=== PATIENT | male | born 1945 | race Caucasian/White ===

== ENCOUNTER 2019-09-29 10:33 | Outpatient (CLI) | payer MEDICARE, BC, SELFPAY ==
[2019-09-29 11:05] VITALS: BP 184/95; PULSE 101; RESP 22; TEMP 36.4; O2SAT 95
[2019-09-29 12:15] VITALS: BP 172/90; PULSE 92; RESP 20; TEMP 36.6; O2SAT 98
--- NOTE | 2019-09-29 12:44 | PC.NURSE ---
1115 noted wheezing bilat. States did breathing treatment this am prior to arrival. States has albuterol in pocket if needed.
== END 2019-09-29 10:34 | disposition home or self-care (01) ==
LOC: RHEOACUTE 10:34
PROVIDERS: Family Provider Family Medicine; PCP Family Medicine; Visit Provider Internal Medicine Rheumatology
DX: M05.9 Rheumatoid arthritis with rheumatoid factor, unspecified (principal); Z79.899 Other long term (current) drug therapy
CPT/HCPCS: 36415; 82565; 84460; 85025; 85651; 86140; 96365; J1602

== ENCOUNTER → 2019-09-29 11:16 | Outpatient (BNVA) | payer MEDICARE, BC, SELFPAY | PROVIDERS: Family Provider Family Medicine; PCP Family Medicine; Visit Provider Internal Medicine Rheumatology | DX: M05.9 Rheumatoid arthritis with rheumatoid factor, unspecified (principal) | CPT/HCPCS: 85025 ==

== ENCOUNTER 2020-01-19 08:48 | Outpatient (CLI) | payer MEDICARE, BC, SELFPAY ==
[2020-01-19 09:00] VITALS: BP 112/77; PULSE 101; RESP 20; TEMP 36.4; O2SAT 90
--- NOTE | 2020-01-19 10:09 | PC.NURSE ---
wheezing throughout. loose cough noted. Home oxygen per [place] in place. 3L.
[2020-01-19 10:45] VITALS: BP 112/72; PULSE 98; RESP 20; TEMP 36.6; O2SAT 90
== END 2020-01-19 08:49 | disposition home or self-care (01) ==
LOC: RHEOACUTE 08:49
PROVIDERS: Family Provider Family Medicine; PCP Family Medicine; Visit Provider Internal Medicine Rheumatology
DX: M05.79 Rheumatoid arthritis with rheumatoid factor of multiple sites without organ or systems involvement (principal); Z79.899 Other long term (current) drug therapy
CPT/HCPCS: 36415; 85025; 85651; 96365; J1602

== ENCOUNTER → 2020-02-19 10:09 | Outpatient (BNVA) | payer MEDICARE, BC, SELFPAY | PROVIDERS: Family Provider Family Medicine; PCP Family Medicine; Visit Provider Internal Medicine Rheumatology | DX: Z79.899 Other long term (current) drug therapy (principal) | CPT/HCPCS: 36415; 80076; 82565; 85025; 85651; 86140 ==

== ENCOUNTER 2020-03-15 10:20 | Outpatient (CLI) | payer MEDICARE, BC, SELFPAY ==
[2020-03-15 10:26] VITALS: BP 102/64; PULSE 96; RESP 18; TEMP 36.6; O2SAT 94
[2020-03-15 11:45] VITALS: BP 136/80; PULSE 90; RESP 18; O2SAT 90
--- NOTE | 2020-03-15 12:44 | XR_ITS ---
WS: [id number] HAND RIGHT TECHNIQUE: 3 views of the right hand CLINICAL INFORMATION: rheumatoid arthritis COMPARISON: None. FINDINGS: Normal metacarpals. Normal MCP joint. Metacarpal heads are normal in appearance. Normal PIP and DIP j oints. Chronic appearing healed fracture deformity involving the distal radius. Narrowing of the radi ocarpal joint. Radiocarpal joint: Narrowing Carpal bones: Normal. XR/XR hand RT min 3V* [id number] IMPRESSION: 1. Chronic appearing healed fracture deformity involving the distal radius. Na rrowing of the radiocarpal joint. 2. No other significant findings.
--- NOTE | 2020-03-15 12:44 | XR_ITS ---
WS: [id number] FOOT LEFT TECHNIQUE: 3 views of the left foot CLINICAL INFORMATION: rheumatoid arthritis COMPARISON: None. FINDINGS: IP joint narrowing involving the PIP and DIP joints. Hammertoe deformities. Metatarsal heads are norm al. No acute fractures. Normal tarsal metatarsal alignment. Normal calcaneus. Normal visualized talar dome. Osteopenia. IMPRESSION: 1. PIP and DIP joint narrowing with hammertoe deformities. 2. Osteopenia.
--- NOTE | 2020-03-15 12:44 | XR_ITS ---
WS: [id number] HAND LEFT TECHNIQUE: 3 views of the left hand CLINICAL INFORMATION: rheumatoid arthritis COMPARISON: None. FINDINGS: Normal metacarpals. Normal MCP joint. Metacarpal heads are normal in appearance. Normal PIP and DIP j oints. No evidence of acute fracture or dislocation. Radiocarpal joint: Normal. Carpal bones: Normal. XR/XR hand LT min 3V* [id number] IMPRESSION: Normal left hand.
--- NOTE | 2020-03-15 12:44 | XR_ITS ---
WS: [id number] FOOT RIGHT TECHNIQUE: 3 views of the right foot CLINICAL INFORMATION: rheumatoid arthritis COMPARISON: None. FINDINGS: Osteopenia. Hammertoe deformities. IP and DIP joint narrowing. Normal metatarsal heads. Metatarsals a re normal in appearance. Normal talus and calcaneus. XR/XR foot RT min 3V* [id number] IMPRESSION: 1. Osteopenia with hammertoe deformities. 2. IP and DIP joint narrowing.
== END 2020-03-15 10:21 | disposition home or self-care (01) ==
LOC: RHEOACUTE 10:21
PROVIDERS: PCP Family Medicine; Visit Provider Internal Medicine Rheumatology
DX: M06.9 Rheumatoid arthritis, unspecified (principal); Z79.899 Other long term (current) drug therapy; M06.041 Rheumatoid arthritis without rheumatoid factor, right hand; M20.41 Other hammer toe(s) (acquired), right foot; M06.042 Rheumatoid arthritis without rheumatoid factor, left hand; M20.42 Other hammer toe(s) (acquired), left foot; J44.9 Chronic obstructive pulmonary disease, unspecified; F17.210 Nicotine dependence, cigarettes, uncomplicated; M19.041 Primary osteoarthritis, right hand
CPT/HCPCS: 73130; 73630; 96365; 99214; J1602

== ENCOUNTER 2020-05-17 10:03 | Outpatient (CLI) | payer MEDICARE, BC, SELFPAY ==
[2020-05-17 10:10] VITALS: BP 103/77; PULSE 103; RESP 22; TEMP 36.6; O2SAT 92
--- NOTE | 2020-05-17 10:33 | PC.NURSE ---
1015 SOB with walking and talking. On oxygen via [place] at home and in infusion room. Wheezing noted throughout lungs. States occasional sputum with cough. Loose cough.Pt states has been doing breathing treatments. Discussed risks of infusion r/t infection and COVID 19. Verbalized understanding.
[2020-05-17 10:49] VITALS: BMI 24.5
[2020-05-17 11:30] VITALS: BP 138/78; PULSE 100; RESP 20; O2SAT 92
--- NOTE | 2020-05-17 11:54 | PC.NURSE ---
Escorted to vehicle to . Tolerated well.
--- NOTE | 2020-05-17 11:54 | PC.NURSE ---
1030 labs obtained with IV start.
== END 2020-05-17 10:04 | disposition home or self-care (01) ==
LOC: RHEOACUTE 10:04
PROVIDERS: Family Provider Family Medicine; PCP Family Medicine; Visit Provider Internal Medicine Rheumatology
DX: M05.79 Rheumatoid arthritis with rheumatoid factor of multiple sites without organ or systems involvement (principal); Z79.899 Other long term (current) drug therapy
CPT/HCPCS: 80076; 82565; 85025; 85651; 86140; 96365; J1602

== ENCOUNTER 2020-07-12 09:52 | Outpatient (CLI) | payer MEDICARE, BC, SELFPAY | END 2020-07-12 09:53 | disposition home or self-care (01) | LOC: RHEOACUTE 09:52 | PROVIDERS: PCP Family Medicine; Visit Provider Internal Medicine Rheumatology | DX: M06.041 Rheumatoid arthritis without rheumatoid factor, right hand (principal); M06.042 Rheumatoid arthritis without rheumatoid factor, left hand; J44.9 Chronic obstructive pulmonary disease, unspecified; Z79.899 Other long term (current) drug therapy; F17.210 Nicotine dependence, cigarettes, uncomplicated; Z79.52 Long term (current) use of systemic steroids | CPT/HCPCS: 99214 ==

== ENCOUNTER → 2020-08-26 09:42 | Outpatient (BNVA) | payer MEDICARE, BC, SELFPAY | PROVIDERS: PCP Family Medicine; Visit Provider Internal Medicine Rheumatology | DX: Z79.899 Other long term (current) drug therapy (principal) | CPT/HCPCS: 36415; 80076; 82565; 85025; 85651; 86140 ==